=== PATIENT | male | born 1990 | race Caucasian/White ===

== ENCOUNTER 2017-01-09 16:14 | Emergency (ER) | payer SELFPAY ==
[2017-01-09 16:17] VITALS: BP 177/102; BMI 28.7
[2017-01-09] MEDS ORDERED: TORADOL 60 MG VIAL IM ONE (18:03)
--- NOTE | 2017-01-09 18:15 | DR.GENAD ---
HPI - PCP Primary Care Physician: FRANCISCO - HPI Comment HPI Comment: PATIENT TWISTED ANKLE. LATERAL ASPECT IS BRUISE AND SWOLLENT. DIFFICULTY BEARING WEIGHT ON LT ANKLE. - Complaint/Symptoms Chief Complaint Doctors Comments: LEFT ANKLE INJURY TIMES 2 HRS. Chief Complaint:: PATIENT HURT LEFT ANKLE ABOUT 2 HOURS AGO AND IT IS SWOLLEN AND VERY PAINFUL - Nurses notes reviewed Nurses Notes Review: Yes - Source History Provided: Patient - Mode of Arrival Mode of Arrival: Ambulatory - Timing Onset of Chief Complaint: 01/09/17 Came on: Suddenly - Duration Duration: Constant Duration: Hours - Severity Severity: Moderate PMH - PMH Past Medical History: No Past Surgical History: No - Family History History of Family Medical Conditions: No - Social History Does patient currently use any type of tobacco product: No Have you used tobacco products in the last 12 months: No Type of Tobacco Use: None Does any household member use tobacco: No Alcohol Use: Occasionally - infectious screening In the last 2 months have you had wt loss of >10#?: NO Have you had fever, night sweats or hemotysis?: No Have you traveled outside the country in the last 6 months?: No Isolation: Standard ROS - Review of Systems Constitutional: No Symptoms Reported Eyes: No Symptoms Reported ENTM: No Symptoms Reported Respiratoy: No Symptoms Reported Cardiovascular: No Symptoms Reported Gastrointestinal/Abdominal: No Symptoms Reported Genitourinary: No Symptoms Reported Neurological: No Symptoms Reported Musculoskeletal: Left, Ankle Integumentary: Bruises Hematologic/Lymphatic: No Symptoms Reported Endocrine: No Symptoms Reported All Other Systems: Reviewed and Negative PE - Vital Signs Vitals: Pulse Rate 107 Respiratory Rate 20 Blood Pressure 177/102 O2 Sat by Pulse Oximetry 98 - General Limitations: No Limitations General Appearance: Alert - Head Head Exam: Normal Inspection - Eyes Eye exam: Normal Appearance - ENT ENT Exam: Normal External Ear Exam Nose Exam: Normal Nose Exam Mouth Exam: Normal Inspection Throat Exam: Normal Inspection - Neck Neck Exam: Trachea Midline - Chest Chest Inspection: Symmetric Chest Wall Rise - Respiratory Respiratory Exam: Normal Lung Sounds Bilat Respiratory Exam: Bilateral Clear to Auscultation - Cardiovascular Cardiovascular Exam: Regular Rate, Normal Rhythm, Normal Heart Sounds - Abdominal Exam Abdominal Exam: Normal Inspection - Extremities Extremities Exam: Tenderness (LT ANKLE), Joint Swelling (LT ANKLE). negative: Full ROM (DECREASE ROM LT ANKLE.) - Back Back Exam: Normal Inspection - Neurologic Neurological Exam: Alert, Oriented X3 - Skin Skin Exam: Erythema MDM - Differential Diagnosis Differential Diagnosis: ANKLE FRACTURE, SPRAIN, STRAIN, CONTUSION. Course - Treatment Treatment: SEE ORDERS. ANKLE SPLINT APPLIED IN ED. - Education/Counseling Education/Counseling: Patient, Education Educated On: Diagnosis, Needs for Follow Up ROR - XRAY XRAY Interpreted by: Radiologist XRAY Findings: REPORT DISCUSS WITH PATIENT. - Diagnosis Discharge Problem: Left ankle sprain Qualifiers: Encounter type: initial encounter Involved ligament of ankle: unspecified ligament Qualified Code(s): S93.402A - Sprain of unspecified ligament of left ankle, initial encounter - Discharge Plan Disposition: HOME, SELF-CARE Condition: Stable Prescriptions: Ibuprofen [MOTRIN TAB 600 MG *] 600 mg PO TID PRN #20 tab PRN Reason: Pain/Inflammation Tramadol HCl 50 mg PO Q8H PRN #15 tab PRN Reason: Pain - Follow ups/Referrals Follow ups/Referrals: [facility],None [Primary Care Provider] - 3 days - Instructions Instructions: Ankle Sprain, [id number] Additional Instructions: RETURN TO ED IF WORSE.
[2017-01-09] MEDS ORDERED: TORADOL 60 MG VIAL ONE (18:42)
--- NOTE | 2017-01-09 18:49 | RAD ---
HISTORY: Ankle pain. 3 views of the left ankle joint. No comparisons. Findings: No acute cortical disruption or dislocation can be identified. The ankle mortise remains well align ed. There is marked lateral malleolar soft tissue swelling, suggesting a lateral ankle ligamentous i njury and/or ankle sprain. The visualized portions of the talus and calcaneus are unremarkable. No other bony or soft tissue abnormalities are seen. No radiopaque foreign bodies are seen in the visua lized soft tissues, either. IMPRESSION: 1. Negative exam for acute fracture or dislocation. 2. Marked lateral malleolar soft tissue swelling, suggesting a lateral ankle ligamentous injury and /or ankle sprain. Small left ankle joint effusion observed. Reported By:
== END 2017-01-09 19:21 | disposition home or self-care (01) ==
LOC: ER 16:22
DX: S93.402A Sprain of unspecified ligament of left ankle, initial encounter (principal); Y33.XXXA Other specified events, undetermined intent, initial encounter; Y92.9 Unspecified place or not applicable
CPT/HCPCS: 36415; 73610; 96372; 99283; J1885